=== PATIENT | male | born 1965 | race Caucasian/White ===

== ENCOUNTER 2017-08-04 10:02 | Emergency (ER) | payer SELFPAY ==
[~2017-08-04] VITALS: Ht 170.1 cm; Wt 79.4 kg
[2017-08-04] MEDS ORDERED: NAPROSYN500 MG PO (10:25)
== END 2017-08-04 10:29 | disposition home or self-care (01) ==
LOC: ED 10:02
DX: S70.11XA Contusion of right thigh, initial encounter (principal); R03.0 Elevated blood-pressure reading, without diagnosis of hypertension; F17.200 Nicotine dependence, unspecified, uncomplicated; F10.10 Alcohol abuse, uncomplicated; X58.XXXA Exposure to other specified factors, initial encounter; Y93.89 Activity, other specified; Y92.89 Other specified places as the place of occurrence of the external cause; Y99.8 Other external cause status

== ENCOUNTER 2019-01-07 08:46 | Emergency (ER) | payer OTHER ==
[~2019-01-07] VITALS: Ht 170.1 cm; Wt 77.1 kg
[~2019-01-07 08:46] MED LIST: NAPROSYN500 MG PO
[2019-01-07] MEDS ORDERED: PREDNISONE50 MG PO (09:29)
[2019-01-07] MEDS ORDERED: LIDEX 0.05% CRE15 GM T (09:29)
[2019-01-07] MEDS ORDERED: PROVENTIL HFA6.7 GM INH (09:29)
[2019-01-07] MEDS ORDERED: ZYRTEC10 MG PO (09:29)
== END 2019-01-07 11:28 | disposition home or self-care (01) ==
LOC: ED 08:46
DX: L24.81 Irritant contact dermatitis due to metals (principal); J20.9 Acute bronchitis, unspecified; J45.909 Unspecified asthma, uncomplicated; F17.200 Nicotine dependence, unspecified, uncomplicated; Z79.899 Other long term (current) drug therapy

== ENCOUNTER 2024-03-18 08:59 | Inpatient (IN) | payer OTHER ==
[~2024-03-18] VITALS: Ht 171.4 cm; Wt 77.8 kg
[~2024-03-18 08:59] MED LIST changes: +LIDEX 0.05% CRE15 GM T; +PREDNISONE50 MG PO; +PROVENTIL HFA6.7 GM INH; +ZYRTEC10 MG PO
[2024-03-18 09:53] VITALS: BP 119/77
[2024-03-18] MEDS ORDERED: SODIUM CHLORIDE 0.9% 1,000 ML IV ONE (10:10)
[2024-03-18 13:11] LABS: HEMATOCRIT 39.6 % (42.0-52.0); MEAN CELL VOLUME 92.7 fl (80.0-94.0); MEAN CORPUSCULAR HGB 32.1 pg (27.0-31.0); MEAN CORPUSCULAR HGB CONC 34.6 g/dl (33.0-37.0); MEAN PLATELET VOLUME 10.8 fl (9.6-12.3); PLATELET COUNT AUTOMATED 211 10*3/uL (130-400); RED BLOOD COUNT 4.27 10*6/uL (4.50-5.90); WHITE BLOOD COUNT 27.8 10*3/uL (4.8-10.8)
[2024-03-18 13:17] LABS: MANUAL DIFF REFLEX YES
[2024-03-18 13:27] LABS: ACT PARTIAL THROMBO TIME 27.5 SECONDS (20.0-32.1)
[2024-03-18 13:34] LABS: DOHLE BODIES FEW; PLATELET SUFFICIENCY NORMAL (NORMAL); TOTAL CELLS COUNTED 100 #CELLS; TOXIC GRANULATION MODERATE
[2024-03-18] MEDS ORDERED: SODIUM CHLORIDE 0.9% 1,000 ML IV SCH (13:40)
[2024-03-18 13:42] LABS: ALKALINE PHOSPHATASE 179 U/L (46-116); BUN 52 mg/dl (9-23); CHLORIDE 106 mmol/L (98-107); LIPASE 19 U/L (12-53); POTASSIUM 3.5 mmol/L (3.4-5.1); SGPT/ALT 35 U/L (5-49); TOTAL PROTEIN 6.5 gm/dL (6.0-8.0)
[2024-03-18 13:44] LABS: ETHYL ALCOHOL < 3.0 mg/dl (<3)
[2024-03-18] MEDS ORDERED: AZITHROMYCIN 250 ML IV ONE (13:50)
[2024-03-18] MEDS ORDERED: Ceftriaxone Sodium 1 GM/10 ML SYR IV ONE (13:50)
[2024-03-18 14:44] VITALS: BP 138/76
[2024-03-18] MEDS ORDERED: Magnesium Hydroxide 30 ML UDC PO PRN (14:50)
[2024-03-18] MEDS ORDERED: ACETAMINOPHEN 325 MG TAB PO PRN (14:50)
[2024-03-18] MEDS ORDERED: Ondansetron Hydrochloride 4 MG/2 ML VIAL IV PRN (14:50)
[2024-03-18] MEDS ORDERED: BISACODYL 10 MG SUPP R PRN (14:50)
[2024-03-18] MEDS ORDERED: BISACODYL 5 MG TAB PO PRN (14:50)
[2024-03-18] MEDS ORDERED: MORPHINE Sulfate 2 MG/ML SYR IV PRN (14:50)
[2024-03-18] MEDS ORDERED: ACETAMINOPHEN 650 MG SUPP R PRN (14:50)
[2024-03-18 17:40] LABS: BILIRUBIN Negative (Negative); BLOOD Negative (Negative); CLARITY Clear (Clear); COLOR Dark Yellow (Yellow); GLUCOSE Negative (Negative); KETONE Negative (Negative); LEUKO ESTERASE Negative (Negative); NITRITE Negative (Negative)
[2024-03-18 18:00] LABS: BACTERIA TRACE; EPITHELIAL CELLS 0-2; RBC 0-2 rbc/hpf (0-2); WBC 0-2 wbc/hpf (0-5)
[2024-03-18 20:37] VITALS: BP 141/84
[2024-03-18 23:10] VITALS: BP 125/67
[2024-03-19] VITALS (7 sets, daily range): BP systolic 111–146; BP diastolic 67–80
[2024-03-19 06:22] LABS: HEMATOCRIT 38.1 % (42.0-52.0); MEAN CELL VOLUME 95.3 fl (80.0-94.0); MEAN CORPUSCULAR HGB CONC 33.6 g/dl (33.0-37.0); MEAN PLATELET VOLUME 10.4 fl (9.6-12.3); PLATELET COUNT AUTOMATED 153 10*3/uL (130-400); RED CELL DISTRI WIDTH 15.5 % (0-14.5)
[2024-03-19 06:35] LABS: ACT PARTIAL THROMBO TIME 30.5 SECONDS (20.0-32.1)
[2024-03-19 06:38] LABS: MANUAL DIFF REFLEX YES
[2024-03-19 07:34] LABS: ALKALINE PHOSPHATASE 180 U/L (46-116); CHLORIDE 109 mmol/L (98-107); CHOLESTEROL 55 mg/dL (<200); FREE T4 0.92 ng/dl (0.89-1.76); POTASSIUM 3.5 mmol/L (3.4-5.1); SGPT/ALT 38 U/L (5-49); TOTAL PROTEIN 5.8 gm/dL (6.0-8.0); TRIGLYCERIDES 88 mg/dl (<150)
[2024-03-19 07:39] LABS: BUN 38 mg/dl (9-23); LDL CHOLESTEROL 29 mg/dL (9-159)
[2024-03-19 07:42] LABS: PLATELET SUFFICIENCY NORMAL (NORMAL); TOTAL CELLS COUNTED 100 #CELLS
[2024-03-19 08:31] LABS: VITAMIN D, 25-HYDROXY 36.9 ng/mL (30-100)
[2024-03-19] MEDS ORDERED: Enoxaparin Sodium 40 MG/0.4 ML SYR SC SCH (10:00)
[2024-03-19] MEDS ORDERED: Vancomycin Hydrochloride 1,000 MG in SODIUM CHLORIDE 0.9% 250 ML IV SCH (10:40)
[2024-03-19] MEDS ORDERED: VANCOMYCIN/WATER FOR INJ (PEG) 300 ML IV SCH (11:00)
[2024-03-19] MEDS ORDERED: AZITHROMYCIN 250 ML IV SCH (14:00)
[2024-03-19] MEDS ORDERED: Ceftriaxone Sodium 1 GM in SYRINGE INFUSION 10 ML IV SCH (15:00)
[2024-03-20 06:58] LABS: HEMATOCRIT 38.7 % (42.0-52.0); MEAN CELL VOLUME 94.2 fl (80.0-94.0); MEAN CORPUSCULAR HGB 32.6 pg (27.0-31.0); MEAN CORPUSCULAR HGB CONC 34.6 g/dl (33.0-37.0); MEAN PLATELET VOLUME 11.6 fl (9.6-12.3); PLATELET COUNT AUTOMATED 157 10*3/uL (130-400); RED BLOOD COUNT 4.11 10*6/uL (4.50-5.90); RED CELL DISTRI WIDTH 15.6 % (0-14.5); WHITE BLOOD COUNT 16.5 10*3/uL (4.8-10.8)
[2024-03-20 07:00] LABS: MANUAL DIFF REFLEX YES
[2024-03-20 07:22] LABS: ATYPICAL LYMPHS 1 % (0-0); BURR CELLS FEW; PLATELET SUFFICIENCY NORMAL (NORMAL); POLYCHROMASIA SLIGHT; ROULEAUX SLIGHT; TOTAL CELLS COUNTED 100 #CELLS; TOXIC GRANULATION MODERATE
[2024-03-20 07:23] LABS: TARGET CELLS FEW
[2024-03-20 08:00] VITALS: BP 126/75
[2024-03-20] MEDS ORDERED: Nicotine 21 MG PATCH T SCH (10:00)
[2024-03-20 12:00] VITALS: BP 128/68
[2024-03-20 16:00] VITALS: BP 125/68
[2024-03-20] MEDS ORDERED: Ceftriaxone Sodium 1 GM in SYRINGE INFUSION 10 ML IV ONE (17:35)
[2024-03-20 20:00] VITALS: BP 143/73
[2024-03-21] VITALS: BP 142/70
[2024-03-21 06:43] LABS: HEMATOCRIT 35.1 % (42.0-52.0); MEAN CELL VOLUME 94.9 fl (80.0-94.0); MEAN CORPUSCULAR HGB 32.4 pg (27.0-31.0); MEAN CORPUSCULAR HGB CONC 34.2 g/dl (33.0-37.0); PLATELET COUNT AUTOMATED 174 10*3/uL (130-400); RED CELL DISTRI WIDTH 15.3 % (0-14.5)
[2024-03-21 06:51] LABS: CHLORIDE 109 mmol/L (98-107); POTASSIUM 3.7 mmol/L (3.4-5.1)
[2024-03-21 07:00] LABS: BUN 21 mg/dl (9-23)
[2024-03-21 07:01] LABS: MANUAL DIFF REFLEX YES
[2024-03-21 07:28] LABS: BASOPHILS 1 % (0-1); BURR CELLS FEW; PLATELET SUFFICIENCY NORMAL (NORMAL); POLYCHROMASIA SLIGHT; ROULEAUX SLIGHT; TARGET CELLS FEW; TOTAL CELLS COUNTED 100 #CELLS
[2024-03-21 07:29] LABS: TOXIC GRANULATION MODERATE
[2024-03-21 08:00] VITALS: BP 116/96
[2024-03-21] MEDS ORDERED: Ceftriaxone Sodium 2 GM in SYRINGE INFUSION 20 ML IV SCH (10:00)
[2024-03-21 12:00] VITALS: BP 126/66
[2024-03-21] MEDS ORDERED: VANCOMYCIN/WATER FOR INJ (PEG) 250 ML IV SCH (12:00)
[2024-03-21 16:00] VITALS: BP 128/76
[2024-03-21 20:00] VITALS: BP 127/62
[2024-03-21] MEDS ORDERED: FLUTICASONE PROPIONATE Nasal 16 Gm spray NAS SCH (22:00)
[2024-03-22] VITALS: BP 127/61
[2024-03-22 06:12] LABS: HEMATOCRIT 36.6 % (42.0-52.0); MEAN CELL VOLUME 92.2 fl (80.0-94.0); MEAN CORPUSCULAR HGB CONC 34.7 g/dl (33.0-37.0); MEAN PLATELET VOLUME 11.7 fl (9.6-12.3); RED BLOOD COUNT 3.97 10*6/uL (4.50-5.90); RED CELL DISTRI WIDTH 14.9 % (0-14.5); WHITE BLOOD COUNT 11.6 10*3/uL (4.8-10.8)
[2024-03-22 06:20] LABS: PLATELET COUNT AUTOMATED 247 10*3/uL (130-400)
[2024-03-22 06:21] LABS: MANUAL DIFF REFLEX YES
[2024-03-22 07:15] LABS: ATYPICAL LYMPHS 1 % (0-0); BASOPHILS 1 % (0-1); PLATELET SUFFICIENCY NORMAL (NORMAL); TOTAL CELLS COUNTED 100 #CELLS
[2024-03-22 07:16] LABS: TOXIC GRANULATION SLIGHT
[2024-03-22 08:00] VITALS: BP 135/87
[2024-03-22 12:00] VITALS: BP 120/71
[2024-03-22 16:00] VITALS: BP 111/76
[2024-03-22 20:00] VITALS: BP 128/86
[2024-03-22] MEDS ORDERED: Melatonin 5 MG TABLET PO PRN (23:15)
[2024-03-23] VITALS: BP 132/83
[2024-03-23 07:06] LABS: BASO % 0.2 % (0.0-1.0); EOS # 0.1 10*3/uL (0.0-0.4); HEMATOCRIT 35.7 % (42.0-52.0); LYMPH # 1.2 10*3/uL (1.3-4.4); LYMPH % 14.6 % (27.0-41.0); MEAN CORPUSCULAR HGB 32.4 pg (27.0-31.0); MEAN CORPUSCULAR HGB CONC 33.9 g/dl (33.0-37.0); MEAN PLATELET VOLUME 10.9 fl (9.6-12.3); MONO # 0.7 10*3/uL (0.1-1.0); MONO % 8.2 % (3.0-9.0); NEUT # 6.1 10*3/uL (2.3-7.9); NEUT % 73.1 % (47.0-73.0); PLATELET COUNT AUTOMATED 296 10*3/uL (130-400); RED BLOOD COUNT 3.74 10*6/uL (4.50-5.90); WHITE BLOOD COUNT 8.4 10*3/uL (4.8-10.8)
[2024-03-23 07:07] LABS: MEAN CELL VOLUME 95.5 fl (80.0-94.0)
[2024-03-23 08:00] VITALS: BP 125/71
[2024-03-23] MEDS ORDERED: FUROSEMIDE 40 MG/4 ML VIAL IV ONE (09:55)
[2024-03-23] MEDS ORDERED: AZITHROMYCIN 250 ML IV SCH (11:00)
[2024-03-23 12:00] VITALS: BP 127/70
[2024-03-23] MEDS ORDERED: ZITHROMAX250 MG PO (12:39)
== END 2024-03-23 13:55 | disposition home or self-care (01) | DRG 871 ==
LOC: ED 08:59 → EDHOLD 13:55 → 4E 13:55 → EDHOLD 13:56 → 4E 14:53 → EDHOLD 14:54 → 4E 03-19 11:56
PROVIDERS: Internal Medicine; ADMIT Internal Medicine; ATTEND Internal Medicine
DX: A40.3 Sepsis due to Streptococcus pneumoniae (principal); E43 Unspecified severe protein-calorie malnutrition; J69.0 Pneumonitis due to inhalation of food and vomit; J15.4 Pneumonia due to other streptococci; D64.9 Anemia, unspecified; J44.9 Chronic obstructive pulmonary disease, unspecified; R74.01 Elevation of levels of liver transaminase levels; Z83.3 Family history of diabetes mellitus; Z82.49 Family history of ischemic heart disease and other diseases of the circulatory system; Z68.26 Body mass index [BMI] 26.0-26.9, adult